=== PATIENT | male | born 1960 | race Caucasian/White ===

== ENCOUNTER 2019-06-16 09:13 | Observation (INO) | payer BC ==
[2019-06-16 09:52] LABS: ABS Eosinophils 0.2 10^3/ul (0-0.6); ABS Lymphocytes 1.3 10^3/ul (1.0-4.8); ABS Monocytes 0.7 10^3/ul (0-0.8); Eosinophil % 2.9 %; Hematocrit 46 % (42-52); Hemoglobin 15.7 g/dL (14.0-18.0); Lymphocyte % 18.1 %; Mean Corpuscular HGB Conc 34 g/dL (31-36); Mean Corpuscular Hemoglobin 33 pg (27-31); Mean Corpuscular Volume 95 fL (80-94); Mean Platelet Volume 9.9 fL (7.4-10.4); Nucleated Red Blood Cells % 0.1; Platelet Count 205 10^3/uL (150-450); Red Blood Count 4.83 10^6 /uL (4.18-5.48); Red Cell Distribution Width 13 % (10-15); White Blood Count 7.3 10^3/uL (3.5-10.8)
[2019-06-16 09:53] LABS: INR 0.94 (0.82-1.09)
[2019-06-16] MEDS ORDERED: Aspirin 81 mg CHEW TAB* 81 MG TAB.CHEW PO ONE (10:06)
--- NOTE | 2019-06-16 10:06 | ED ---
HPI Chest Pain - HPI Summary HPI Summary: This patient is a 58 year old M presenting to [facility] with a chief complaint of mild intermittent pressure at the center of his chest since 3 days ago. Pt states this pressure forces him to focus on his heart beating. His last episode of chest pressure was 10-15 minutes ago and lasts for 2 minutes. The chest pressure is non-radiating. He notes his BP was higher than baseline when he last checked. Pt sent an email to his PCP regarding his heart symptoms, who told him to go into the ED. Pt takes antihistamine medications and took Ibuprofen 1 hour ago. His father had a quadruple bypass and was diabetic. The patient rates the pain 0/10 in severity. Symptoms aggravated by nothing. Symptoms alleviated by nothing. Patient reports TEMPLE, slight dizziness, inability to focus, mild to moderate sleep apnea, tinnitus, legs more fatigued than baseline, feeling a little out of it, and neck/face tension. Pt denies any fever, chills, erythema of eyes, sore throat, CP, SOB, cough, abdominal pain, N/ V, dysuria, hematuria, myalgia, edema, rash. Pt does not smoke or drink. - History of Current Complaint Chief Complaint: EDChestPainROMI Time Seen by Provider: 06/16/19 09:27 Hx Obtained From: Patient Onset/Duration: Started Days Ago - 3 Timing: Intermittent - last episode was 15 min ago and was 2 min long, Lasting Days - 3 Initial Severity: Mild Current Severity: Mild Pain Intensity: 0 Pain Scale Used: 0-10 Numeric Chest Pain Radiates: No Character: Other: - chest pressure at center of chest Aggravating Factor(s): Nothing Alleviating Factor(s): Nothing Associated Signs and Symptoms: Positive: Other: - positive - inability to focus , mild to moderate sleep apnea, tinnitus, legs more fatigued than baseline, feeling a little out of it, and neck/face tension. negative - erythema of eyes , sore throat, dysuria, hematuria, myalgia, rash. Negative: Chest Pain, Headaches, Dizziness, Shortness of Breath, Fever, Chills, Nausea, Cough, Productive Cough, Nonproductive Cough, Abdominal Pain, Vomiting, Edema - Allergy/Home Medications Allergies/Adverse Reactions: Allergies Allergy/AdvReac Type Severity Reaction Status Date / Time No Known Allergies Allergy Verified 06/16/19 09:24 Home Medications: Home Medications Cetirizine* [ZyrTEC 10 MG TAB*] 10 mg PO DAILY 06/16/19 [History Confirmed 06/16] Triamcinolone NASAL SPRAY* [Nasacort AQ Nasal Rush*] 1 puff NASAL DAILY [History Confirmed 06/16/19] PMH/Surg Hx/FS Hx/Imm Hx Previously Healthy: No Cardiovascular History: Reports: Hx Hypertension Sensory History: Denies: Hx Cataracts, Hx Contacts or Glasses, Hx Legally Blind, Hx Hearing Problem EENT History: Denies: Hx Deafness, Hx Hearing Problem, Hx Auditory Problems - Surgical History Surgical History: Yes Surgery Procedure, Year, and Place: vasectomy Infectious Disease History: No Infectious Disease History: Denies: Traveled Outside the [place] in Last 30 Days - Family History Known Family History: Positive: Cardiac Disease, Diabetes - Social History Alcohol Use: None Hx Substance Use: No Substance Use Type: Reports: None Hx Tobacco Use: No Smoking Status (MU): Never Smoked Tobacco Do You Chew or Dip Tobacco: No Have You Chewed or Dipped Tobacco in the LAST YEAR: No Have You Smoked in the Last Year: No Review of Systems Constitutional: Other - positive - feeling a little out of it Negative: Fever, Chills Negative: Erythema ENT: Other - positive - tinnitus, neck/face tension Negative: Sore Throat Cardiovascular: Other - positive - intermittent, center chest pressure Negative: Chest Pain Respiratory: Other - positive - mild to moderate sleep apnea Negative: Shortness Of Breath, Cough Negative: Abdominal Pain, Vomiting, Nausea Negative: dysuria, hematuria Musculoskeletal: Other - positive - legs more fatigued than baseline Negative: Myalgia, Edema Negative: Rash Neurological: Other - positive - slight dizziness, inability to focus Positive: Headache All Other Systems Reviewed And Are Negative: Yes Physical Exam - Summary Physical Exam Summary: Constitutional: Well-developed, Well-nourished, Alert. (-) Distressed Skin: Warm, Dry HENT: Normocephalic; Atraumatic Eyes: Conjunctiva normal Neck: Musculoskeletal ROM normal neck. (-) JVD, (-) Stridor, (-) Tracheal deviation Cardio: Rhythm regular, rate normal, Heart sounds normal; Intact distal pulses; The pedal pulses are 2+ and symmetric. Radial pulses are 2+ and symmetric. (-) Murmur Pulmonary/Chest wall: Effort normal. (-) Respiratory distress, (-) Wheezes, (-) Rales Abd: Soft, (-) tenderness, (-) Distension, (-) Guarding, (-) Rebound Musculoskeletal: (-) Edema Lymph: (-) Cervical adenopathy Neuro: Alert, Oriented x3 Psych: Mood and affect Normal Triage Information Reviewed: Yes Vital Signs On Initial Exam: Initial Vitals Temp Pulse Resp BP Pulse Ox 98.1 F 70 16 178/107 96 06/16/19 09:23 06/16/19 09:23 06/16/19 09:23 06/16/19 09:23 06/16/19 09:23 Vital Signs Reviewed: Yes Diagnostics - Vital Signs Vital Signs Temp Pulse Resp BP Pulse Ox 06/16/19 09:23 98.1 F 70 16 178/107 96 - Laboratory Lab Results: Lab Results 06/16/19 06/16/19 Range/Units 09:32 09:32 WBC 7.3 (3.5-10.8) 10^3/uL RBC 4.83 (4.18-5.48) 10^6 /uL Hgb 15.7 (14.0-18.0) g/dL Hct 46 (42-52) % MCV 95 H (80-94) fL MCH 33 H (27-31) pg MCHC 34 (31-36) g/dL RDW 13 (10-15) % Plt Count 205 (150-450) 10^3/uL MPV 9.9 (7.4-10.4) fL Neut % (Auto) 69.4 % Lymph % (Auto) 18.1 % Yates % (Auto) 9.1 % Eos % (Auto) 2.9 % Baso % (Auto) 0.5 % Absolute Neuts (auto) 5.0 (1.5-7.7) 10^3/ul Absolute Lymphs (auto) 1.3 (1.0-4.8) 10^3/ul Absolute Monos (auto) 0.7 (0-0.8) 10^3/ul Absolute Eos (auto) 0.2 (0-0.6) 10^3/ul Absolute Basos (auto) 0.0 (0-0.2) 10^3/ul Absolute Nucleated RBC 0.0 10^3/ul Nucleated RBC % 0.1 INR (Anticoag Therapy) 0.94 (0.82-1.09) Result Diagrams: 06/16/19 09:32 06/16/19 09:25 Lab Statement: Any lab studies that have been ordered have been reviewed, and results considered in the medical decision making process. - EKG 0920 Cardiac Rate: NL - 73 BPM EKG Rhythm: Sinus Rhythm Summary of EKG Findings: shows 73 BPM, sinus rhythm, no STEMI 1025 Cardiac Rate: NL - 62 BPM EKG Rhythm: Sinus Rhythm Summary of EKG Findings: 62 BPM, sinus rhythm, probable left ventricular hypertrophy Chest Pain Course/Dx - Course Course Of Treatment: This patient is a 58 year old M presenting to [facility] with a chief complaint of mild intermittent pressure at the center of his chest since 3 days ago. Pt states this pressure forces him to focus on his heart beating. His last episode of chest pressure was 10-15 minutes ago and lasts for 2 minutes. The chest pressure is non-radiating. He notes his BP was higher than baseline when he last checked. Pt sent an email to his PCP regarding his heart symptoms, who told him to go into the ED. Pt takes antihistamine medications and took Ibuprofen 1 hour ago. His father had a quadruple bypass and was diabetic. The patient rates the pain 0/10 in severity. Symptoms aggravated by nothing. Symptoms alleviated by nothing. Patient reports TEMPLE, slight dizziness, inability to focus, mild to moderate sleep apnea, tinnitus, legs more fatigued than baseline, feeling a little out of it, and neck/face tension. Pt denies any fever, chills, erythema of eyes, sore throat, CP, SOB, cough, abdominal pain , N/V, dysuria, hematuria, myalgia, edema, rash. Pt does not smoke or drink. Physical exam shows no remarkable findings. Lab results show MCV 95, MCH 33, BUN/creatinine ratio 23.1. EKG at 0920 shows 73 BPM, sinus rhythm, no STEMI. EKG at 1025 shows 62 BPM, sinus rhythm, probable left ventricular hypertrophy. During ED course, the pt was given Aspirin, Prinivil, and NTG. Symptoms have been waxing and waning during ED. We started antihypertensives. At 1125, Dr. Pitts discusses pt's case with Dr. David, hospitalist, who agrees to admit pt. Pt is agreeable. Dx are hypertensive emergency and unspecified CP. - Diagnoses Provider Diagnoses: Hypertensive emergency, Chest pain, unspecified - Provider Notifications Discussed Care Of Patient With: Agnes David Time Discussed With Above Provider: 11:25 Instructed by Provider To: Other - Dr. Pitts discusses pt's case with Dr. David, hospitalist, who agrees to admit pt. Discharge - Sign-Out/Discharge Documenting (check all that apply): Patient Departure - admit Patient Received Moderate/Deep Sedation with Procedure: No - Discharge Plan Condition: Stable Disposition: ADMITTED TO [facility] Referrals: Niall Hooper MD [Primary Care Provider] - - Attestation Statements Document Initiated by Scribe: Yes Documenting Scribe: Dre Cobb Provider For Whom Scribe is Documenting (Include Credential): Dr. Jamir Pitts MD Scribe Attestation: Dre Lopez, scribed for Dr. Jamir Pitts MD on 06/16/19 at 1157. Status of Scribe Document: Ready
[2019-06-16 10:11] LABS: Albumin 4.3 g/dL (3.2-5.2); Albumin/Globulin Ratio 1.5 (1-3); BUN/Creatinine Ratio 23.1 (8-20); Calcium 9.5 mg/dL (8.6-10.3); EGFR African American 102.8 (>60); Globulin 2.9 g/dL (2-4); Potassium 4.2 mmol/L (3.5-5.0); Total Bilirubin 0.5 mg/dL (0.2-1.0); Total Protein 7.2 g/dL (6.4-8.9)
[2019-06-16] MEDS ORDERED: Nitroglycerin TAB 0.4 MG* 0.4 MG TAB SL ONE (10:14)
[2019-06-16] MEDS ORDERED: Lisinopril TAB* 10 MG PO ONE (11:12)
[2019-06-16] MEDS ORDERED: Labetalol IV* 5 MG/ML 20 ML VIAL IV PUSH ONE (12:41)
[2019-06-16] MEDS ORDERED: Metoprolol Tartrate IV* 1 MG/ML 5 ML VIAL IV PRN (14:53)
[2019-06-16] MEDS: Metoprolol Tartrate TAB* 25 MG PO SCH (15:57)
--- NOTE | 2019-06-16 16:51 | HP ---
CC: Dr. Hooper HISTORY AND PHYSICAL: DATE OF ADMISSION: 06/16/19 TIME OF EVALUATION: 12:55 p.m. PRIMARY CARE PROVIDER: Dr. Hooper. CHIEF COMPLAINT: Chest pressure. HISTORY OF PRESENT ILLNESS: Mr. Woody is a 58-year-old male with a limited past medical history of seasonal allergies who presents to the emergency room with complaints of intermittent chest pressure for 3 days associated with mild headache. The patient states he was in his usual state of health until 3 days ago, when he started to have this feeling of pressure on his chest. He is very clear to say that this is not pain, but it feels like "a hand is pushing in the middle of my chest." He states that the episode would last 2 to 3 minutes and would resolve by itself. There were no palpitations, shortness of breath, dizziness, or other sy mptoms initially. He states that today he started to have some mild headache and states that his thought process was no t clear and that he felt a little "out of it and could not focus." He sent an e-mail to his primary care provider this morning and then he received a phone call from [facility] nurse advising him to come to the emergency room for further evaluation. At the time of my interview, the patient states that the headache and the chest pressure are resolved . He denies fever, chills, cough, shortness of breath, sore throat, abdominal pain, nausea, vomiting, d iarrhea, or urinary complaints. PAST MEDICAL HISTORY: 1. Seasonal allergies. 2. Reported mild obstructive sleep apnea that he treats with an oral appliance only. PAST SURGICAL HISTORY: Status post vasectomy. MEDICATION LIST: 1. Cetirizine 10 mg p.o. daily. 2. Nasacort 1 spray nasal daily. ALLERGIES: No known drug allergies. FAMILY HISTORY: His father had a history of severe coronary artery disease and had a bypass in his l ate 40s or early 50s. He passed at age 53. He states there is a strong history of alcohol abuse in his family and his mother and brother of cirrhosis. SOCIAL HISTORY: The patient denies history of alcohol or tobacco use. He states that he used to smo ke marijuana, but has not had any for the past 5 years. Surrogate decision maker is his , Nanette silverman, phone number is [phone] or [phone]. REVIEW OF SYSTEMS: A 14-point review of systems was performed, and all the pertinent negative and po sitive findings are as per the HPI. PHYSICAL EXAMINATION GENERAL: The patient is a thin, pleasant gentleman, sitting up on the ED stretcher, in no acute dist ress. VITAL SIGNS: Temperature 98.1, heart rate was 73, respiratory rate 15, oxygen saturation is 95% on r oom air, blood pressure is 162/110. HEENT: Pupils are equal. Moist mucous membranes. CHEST: Breath sounds present bilaterally with no added sounds. CVS: Normal S1, S2. Regular rate and rhythm. I question if there is a systolic murmur, but my ausc ultation was not clear. ABDOMEN: Soft. Bowel sounds present. EXTREMITIES: There is no edema. NEURO: He is alert and oriented x3. Able to move all 4 extremities. DIAGNOSTIC STUDIES/LAB DATA: The patient had a CBC that showed a WBC of 7.3, hemoglobin of 15.7, he matocrit of 46, platelets of 205. His MCV is 95, MCH is 33. INR was 0.94. Chemistry showed a sodium of 137, potassium of 4.2, chloride of 102, bicarb of 28, BUN of 21, creatinine of 0.91, glucose of 87, calcium of 9.5. LFTs were normal. First 2 troponins are negative. EKG done 06/16/19 at 9:16 a.m. shows sinus rhythm at 73 beats per minute with no acute ischemic gaytan es. Repeat EKG done at 10:20 a.m., it still does not show any signs of acute ischemia, but it does s uggest LVH. No chest x-ray was done while in the emergency room. ASSESSMENT AND PLAN: Mr. Woody is a 58-year-old male with a past medical history of allergies and mild obstructive sleep apnea who presents to the emergency room with complaints of chest pressure and headache, found to have elevated blood pressure. 1. Chest pressure, rule out acute coronary syndrome. The patient has a significant history of coron charlie artery disease with his father having bypass surgery in his late 40s or early 50s and passing of cardiac disease at age 53. I believe his chest pressure is likely related to his elevated blood pres sure, but he will have serial troponins to rule out acute coronary syndrome. If his troponins are ne gative, I believe we could work on controlling his blood pressure while in the hospital and then purs ue a stress test as an outpatient when his blood pressure is better controlled. 2. Hypertensive emergency. I am especially concerned with the patient's diastolic blood pressure. I believe that his chest pressure, headache, and difficulty concentrating are associated with his hyp ertension. At this point, I do not think he would require a drip in the intensive care unit, but he has not responded to oral lisinopril prescribed by the ED physician. He received 1 dose of labetalol IV and his blood pressure has responded nicely, trending down to 128/85. At this point, I am going to admit him as observation. I am going to start him on metoprolol tartrate 12.5 mg p.o. q.12 and gallego ve metoprolol IV as needed if his blood pressure rebounds. His EKG shows left ventricular hypertroph y and I am concerned that he may have had hypertension for longer than he is aware. An echocardiogra m was requested. 3. Macrocytosis. We will check B12 and folate level, although the patient is not anemic, but this m ay be a sign of deficiency. 4. Seasonal allergies. We will continue his antiallergics. 5. DVT prophylaxis. The patient has a score of 1 on the DVT Prophylaxis Risk Assessment Guide and h e will have SCDs while in bed and we will encourage ambulation. 6. Code status is full. TIME SPENT: Approximately 50 minutes were spent with the patient's intervie w, medical records' review, physical examination to complete this admission; more than half of this t bill was spent [id number] with the patient and in coordination of care. [id number]/[facility] #: [id number]
[2019-06-16 18:26] LABS: Folate 15.12 ng/mL (>3.99)
[2019-06-16] MEDS: Ibuprofen TAB* 600 MG PO PRN (21:28)
--- NOTE | 2019-06-17 06:49 | ECHO ---
*[facility]* [place] [address] Fax #: [phone] Transthoracic Echocardiogram Patient: Raymond Woody : 1960 Study Date: 06/16/2019 Age: 58 Gender: M HR: 70 bpm Height: 69 in /175.3 cm BSA: 1.87 m^2 Weight: 156.7 lb /71.2 kg BMI: 23.2 kg/m^2 *Telephonic Nurse: * Pamela Fournier [facility] *Referring Physician: * Agnes NarayananReading Physician: * Abrahan Smith MD Indications: Chest Pain, unspecified. History: Functional status: Not following treatment plan for sleep apnea. Risk factors: Hypertension. Conclusions Summary: - Left ventricle: Systolic function is normal. The estimated ejection fraction is 55-60%. Doppler parameters are consistent with abnormal left ventricular relaxation (grade 1 diastolic dysfunction). - Right ventricle: The cavity size is mildly dilated. - Mitral valve: There is trace regurgitation. - Aortic valve: The valve is trileaflet. The leaflets are mildly thickened. There is trace regurgitation. - Tricuspid valve: There is trace to mild regurgitation. Study data: Transthoracic echocardiogram. Procedure: Transthoracic echocardiography was performed. Image quality was good. Complete 2D, spectral Doppler, and color flow Doppler. Location: Emergency department. Patient status: Inpatient. Patient room number: ED-5. No prior study is available for comparison. Rhythm: Normal sinus rhythm with PVC's. Findings Left ventricle: The cavity size is normal. There is mild concentric hypertrophy. Systolic function is normal. The estimated ejection fraction is 55-60%. Wall motion is normal; there are no regional wall motion abnormalities. Doppler parameters are consistent with abnormal left ventricular relaxation (grade 1 diastolic dysfunction). Right ventricle: The cavity size is mildly dilated. Systolic function is normal. Systolic pressure is within the normal range. Left atrium: The atrium is normal in size. Right atrium: The atrium is normal in size. Atrial septum: The atrial septum appears aneurysmal. Mitral valve: The leaflets are mildly thickened. There is no evidence of stenosis. There is trace regurgitation. Aortic valve: The valve is trileaflet. The leaflets are mildly thickened. There is no evidence of stenosis. There is trace regurgitation. Tricuspid valve: The leaflets are normal thickness. There is no evidence of stenosis. There is trace to mild regurgitation. Pulmonic valve: The leaflets are normal thickness. There is no evidence of stenosis. There is trace regurgitation. Aorta: Ascending aorta: The ascending aorta is upper normal in size. The aortic root appears normal. The aortic arch appears normal. Pericardium: There is no significant pericardial effusion. Pulmonary arteries: Systolic pressure is within the normal range. Pulmonary artery pressure may be underestimated Systemic veins: Inferior vena cava: The vessel is dilated. There is (>= 50%) respiratory change in the IVC dimension. Measurements Left ventricle Value Ref Aortic valve Value Ref MYLES, LAX 4.4 cm 4.2 - 5.8 Nilda diam, S (L) 1.8 cm 2.0 - 3.2 ESD, LAX 3.1 cm 2.5 - 4.0 Peak v, S 1.1 m/sec --------- FS, LAX 30 % 25 - 43 VTI, S 21.1 cm --------- PW, ED, LAX (H) 1.2 cm 0.6 - 1.0 Mean grad, S 2.4 mm Hg --------- FS 30 % 25 - 43 Peak grad, S 4.8 mm Hg --------- PW, ED (H) 1.2 cm 0.6 - 1.0 LVOT/AV, VTI ratio 1.01 --------- E', lat nilda, TDI (L) 5.9 cm/sec >=10.0 E/e', lat nilda, TDI 8 --------- Mitral valve Value Ref Peak E 0.44 m/sec --------- LVOT Value Ref Peak A 0.76 m/sec --------- Peak zeus, S 1.01 m/sec --------- Decel time 267 ms --------- VTI, S 21.3 cm --------- Peak E/A ratio 0.59 --------- Peak grad, S 4 mm Hg --------- Mean grad, S 2 mm Hg --------- Pulmonic valve Value Ref Peak v, S 0.82 m/sec --------- Ventricular septum Value Ref IVS, ED (H) 1.2 cm 0.6 - 1.0 Tricuspid valve Value Ref TR peak v 2.03 m/sec <=2.8 Right ventricle Value Ref Peak RV-RA grad, S 16 mm Hg --------- MYLES, LAX 2.8 cm --------- MYLES major ax, A4C (L) 4.5 cm 5.9 - 8.3 Aortic root Value Ref Pressure, S 24 mm Hg --------- Root diam 3.4 cm <4.0 Left atrium Value Ref Ascending aorta Value Ref LA ID 3.0 cm --------- AAo AP diam, S 3.7 cm --------- SI dim ES, LAX 3.0 cm --------- ML dim, A4C 4.1 cm --------- Aortic arch Value Ref SI dim, A4C 4.6 cm --------- Arch diam 2.3 cm --------- Vol, ES, 2-p 49 ml --------- Vol/bsa, ES, 2-p 26 ml/m^2 16 - 34 Pulmonary artery Value Ref Pressure, S 21.3 mm Hg --------- Right atrium Value Ref SI dim, ES 4.6 cm 3.4 - 5.3 Inferior vena cava Value Ref ML dim, ES, A4C 3.2 cm 2.6 - 4.4 Diam 2.3 cm --------- SI dim, ES, A4C 4.6 cm 3.4 - 5.3 Estimated RAP 8 mm Hg --------- Legend: (L) and (H) angel values outside specified reference range. Prepared and electronically signed by Abrahan Smith MD 06/17/2019 06:49
[2019-06-17] MEDS: Ibuprofen TAB* 600 MG PO PRN (08:03)
[2019-06-17] MEDS: Metoprolol Tartrate TAB* 25 MG PO SCH (08:20)
[2019-06-17] MEDS ORDERED: TRIAMCINOLONE NASAL SCH (09:00)
[2019-06-17] MEDS ORDERED: Aspirin EC TAB* 81 MG TAB.EC PO SCH (09:00)
[2019-06-17] MEDS ORDERED: Cetirizine* 10 MG TAB PO SCH (09:00)
[2019-06-17] MEDS ORDERED: Metoprolol Succinate XL TAB* 25 MG PO SCH (09:00)
[2019-06-17 09:32] VITALS: BP 121/82
--- NOTE | 2019-06-17 11:14 | DS ---
CC: Dr. Hooper DISCHARGE SUMMARY: DATE OF ADMISSION: DATE OF DISCHARGE: 06/17/19 HISTORY OF PRESENT ILLNESS: This is a 58-year-old man who presented with chest pressure, dizziness, and increased tinnitus. He said that his chest pressure was like a pain on his chest, it was intermi ttent for about 3 days. He continued to do is daily walk of 30 to 45 minutes every day without any c hange in the chest pressure. He has no previous cardiac history. He took his blood pressure at home with his own cuff and got about 165/100, which he found that it wa s elevated and came to the emergency room. He has not really had high enough blood pressure to warra nt a discussion with his doctor in the past. In the emergency room, his blood pressure was 162/110. He was given intravenous labetalol with a rat her brisk response, his blood pressure falling to 128/85. He was started on metoprolol tartrate 12.5 mg b.i.d. He received a dose of metoprolol tartrate at 4 p.m. on 06/16/19 and at 8:20 a.m. on 06/17. His blood pressure was approximately 120/80 on the morning of discharge. His symptoms have pre tty much completely resolved. I told the patient that a low-salt diet would be helpful in treating his high blood pressure. I warn ed him about symptoms, about slow heart rate, and possible lightheadedness and even syncope with any blood pressure medication. He had an echocardiogram which showed mild left ventricular hypertrophy and otherwise was unremarkabl e. Ejection fraction was 55% to 60%. We have recommended that the patient have an outpatient stress test. He was advised to avoid any str enuous physical activity until he gets the results of his stress test. He preferred to have this arr anged with his primary care provider, Dr. Hooper. FINAL DIAGNOSES: 1. Chest pressure. 2. Hypertension. 3. Macrocytosis. His MCV was 95, which is really borderline elevated. His B12 level was 195, folat e was 15. A methylmalonic acid level has been added on to his previous blood tests and hopefully sarahi l be reported out in the next 3 days. If they are not able to add it to his previous blood tests, th is could be ordered as an outpatient. DISCHARGE MEDICATIONS: 1. The patient will take one dose of metoprolol tartrate 12.5 mg at bedtime, 06/17/19, and then star t metoprolol succinate 25 mg daily on 06/18/19. 2. He will take an aspirin 81 mg daily until he gets the results of his stress test. 3. He will continue on his cetirizine 10 mg daily. 4. Triamcinolone nasal spray daily. 5. Valacyclovir 500 mg daily. 6. Sildenafil 100 mg p.r.n. CONDITION ON DISCHARGE: Improved. DISPOSITION ON DISCHARGE: Discharged home with outpatient stress test to be scheduled in the near beth. [id number]/[facility] #: [id number]
== END 2019-06-17 10:00 | disposition home or self-care (01) ==
LOC: ED 09:13 → MEDTELE 12:57
PROVIDERS: ADMIT Internal Medicine; ATTEND Internal Medicine
DX: R07.9 Chest pain, unspecified (principal); I10 Essential (primary) hypertension; D75.89 Other specified diseases of blood and blood-forming organs; R42 Dizziness and giddiness; H93.19 Tinnitus, unspecified ear; R51 Headache; G47.33 Obstructive sleep apnea (adult) (pediatric); Z87.09 Personal history of other diseases of the respiratory system; Z79.899 Other long term (current) drug therapy
CPT/HCPCS: 36415; 71045; 80053; 82607; 82746; 83921; 84443; 84484; 85025; 85610; 93005; 93306; 96374; 99284; A9270-GY; G0378